=== PATIENT | female | born 1995 | race Hispanic/Latino ===

== ENCOUNTER 2017-12-22 13:59 | Emergency (ER) | payer OTHER ==
[2017-12-22 14:10] VITALS: BMI 22.3
[2017-12-22 14:12] VITALS: O2SAT 98
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
[2017-12-22] MEDS ORDERED: Bacitracin 500 Units/gm Oint Foilpak UD ONE (16:02)
[2017-12-22 16:14] VITALS: BP 110/78; PULSE 84; RESP 18; TEMP 98.4
== END 2017-12-22 16:35 | disposition home or self-care (01) ==
LOC: C.ER 13:59
DX: S61.215A Laceration without foreign body of left ring finger without damage to nail, initial encounter (principal); W45.8XXA Other foreign body or object entering through skin, initial encounter